=== PATIENT | male | born 1970 | race African-American/Black ===

== ENCOUNTER 2022-09-22 08:31 | Emergency (ER) | payer MEDICARE, MEDICAID ==
[2022-09-22] MEDS ORDERED: Iopamidol 370 76% 125 ML VIAL FS ONE (08:32)
[2022-09-22] MEDS ORDERED: Sodium Chloride 0.9% 100 ML BAG ONE (08:32)
[2022-09-22] MEDS ORDERED: hydrALAZINE 20 MG/ML VIAL ONE (09:03)
[2022-09-22 09:10] LABS: #Eosinphils 0.1 thou/uL (0.0-0.7); #Lymphocytes 2.6 thou/uL (1.20-3.40); #Monocytes 0.8 thou/uL (0.11-0.59); #Neutrophils 6.3 thou/uL (1.40-6.50); %Basophils 0.5 % (0.0-1.0); %Eosinophils 0.7 % (0.0-10.0); %Lymphocytes 26.4 % (21.0-51.0); %Monocytes 8.2 % (0.0-10.0); %Neutrophils 64.3 % (42.0-75.0); Mean Corpuscular HGB CONC 33.1 g/dL (32.0-36.0); Mean Corpuscular Hemoglobin 30.4 pg (27.0-31.0); Mean Corpuscular Volume 91.8 fl (78.0-98.0); Platelet Count 179 10x3/uL (130-400); Red Blood Cell (RBC) Count 4.61 mill/uL (4.70-6.10); White Blood Cell (WBC) Count 9.8 10x3/uL (4.8-10.8)
[2022-09-22] MEDS ORDERED: Diltiazem 125 MG/25 ML ONE ×2 (09:22→09:52)
[2022-09-22 09:30] LABS: ALT (SGPT) 56 U/L (8-55); AST (SGOT) 35 U/L (5-34); Alkaline Phosphatase 114 U/L (40-110); Anion Gap 15 mmol/L (10-20); BUN (Urea Nitrogen) 17 mg/dL (8.4-25.7); Bilirubin, Total 0.6 mg/dL (0.2-1.2); Calc. Creatinine Clearance 0 mL/min (70-130); Calcium 9.7 mg/dL (7.8-10.44); Carbon Dioxide 23 mmol/L (22-29); Chloride 106 mmol/L (98-107); Estimated GFR 70; Globulin 2.7 g/dL (2.4-3.5); Glucose 303 mg/dL (70-105); Magnesium 1.5 mg/dL (1.6-2.6); Protein, Total 6.7 g/dL (6.0-8.3); Sodium 140 mmol/L (136-145)
[2022-09-22 09:48] LABS: CKMB 4.3 ng/mL (0-6.6)
[2022-09-22] MEDS ORDERED: Furosemide 40 MG/4 ML VIAL ONE (09:52)
[2022-09-22] MEDS ORDERED: Mag-Al Plus 1200 MG/1200 MG/120 MG/30 ML UDCUP ONE (11:58)
[2022-09-22] MEDS ORDERED: Famotidine 20 MG TAB ONE (11:58)
[2022-09-22] MEDS ORDERED: Lidocaine Viscous Sol 2% 15 ml UD Cup ONE (11:58)
[2022-09-22] MEDS ORDERED: Aspirin Chewable 81 MG TAB ONE (12:12)
[2022-09-22] MEDS ORDERED: Amiodarone 150 MG/3 ML VIAL ONE (12:41)
[2022-09-22] MEDS ORDERED: Magnesium Oxide 400 MG TAB ONE ×2 (13:20→13:22)
== END 2022-09-22 13:53 | disposition short-term general hospital (02) ==
LOC: MADERS 08:31
DX: I48.92 Unspecified atrial flutter (principal); I11.0 Hypertensive heart disease with heart failure; I50.9 Heart failure, unspecified; R06.02 Shortness of breath; K21.9 Gastro-esophageal reflux disease without esophagitis; F17.210 Nicotine dependence, cigarettes, uncomplicated; Z79.4 Long term (current) use of insulin; Z79.84 Long term (current) use of oral hypoglycemic drugs; Z79.899 Other long term (current) drug therapy
CPT/HCPCS: 71045; 71275; 80053; 82553; 83735; 83880; 84484; 85025; 85379; 93005; 94760; 96374; 96375; 96376; J0282; J0360; J1940; Q9967